=== PATIENT | female | born 1975 | race Two or more races ===

== ENCOUNTER 2019-09-29 04:40 | Emergency (ER) | payer SELFPAY ==
[2019-09-29 07:25] LABS: APPEARANCE,URINE CLEAR; BILIRUBIN,URINE NEGATIVE (NEGATIVE); GLUCOSE, URINE 50 mg/dL (NEGATIVE); KETONES,URINE NEGATIVE (NEGATIVE); LEUKOCYTE ESTERASE,URINE NEGATIVE (NEGATIVE); NITRITE,URINE POSITIVE (NEGATIVE); PROTEIN,URINE NEGATIVE (NEGATIVE); URINE SPECIFIC GRAVITY 1.011
[2019-09-29 07:28] LABS: COLOR,URINE ORANGE
--- NOTE | 2019-09-29 09:16 | ER Document Report ---
ED General - General Chief Complaint: Pain With Urination Stated Complaint: URINARY ISSUE Time Seen by Provider: 09/29/19 07:51 TRAVEL OUTSIDE OF THE [place] IN LAST 30 DAYS: No - HPI Notes: Patient is a 43-year-old female with a history of chronic back pain, hypertension, diabetes, who presents to the emergency department for evaluation of difficulty urinating. She states she is had similar symptoms in the past, but she was unable to pass any urine at all. She came here to the ER for further evaluation. Bladder scan prior to my evaluation of the patient revealed over 300 cc of urine, so straight cath was placed. The patient had over 700 cc of urine drained from the bladder. She denies any incontinence. She denies any saddle anesthesia. No focal numbness or weakness. She denies any recent changes in medications, with the exception of some hucc-nkj-jrvkbyc bladder anesthetic that she took last night. This did turn her urine bright orange. - Related Data Allergies/Adverse Reactions: No Known Allergies Allergy (Verified 09/29/19 06:51) Home Medications: Lisinopril. metformin. Glipizide Past Medical History - General Information source: Patient - Social History Smoking Status: Never Smoker Chew tobacco use (# tins/day): No Frequency of alcohol use: None Drug Abuse: None Family History: Reviewed & Not Pertinent Patient has suicidal ideation: No Patient has homicidal ideation: No - Past Medical History Cardiac Medical History: Reports: Hx Hypertension Endocrine Medical History: Reports: Hx Diabetes Mellitus Type 2 Past Surgical History: Reports: Hx Hysterectomy Review of Systems - Review of Systems Genitourinary: See HPI Musculoskeletal: See HPI -: Yes All other systems reviewed and negative Physical Exam - Vital signs Vitals: Temp Pulse Resp BP Pulse Ox 97.7 F 78 18 147/88 H 98 09/29/19 04:44 09/29/19 04:44 09/29/19 04:44 09/29/19 04:44 09/29/19 04:44 - Notes Notes: Vital signs reviewed, please refer to chart. Head is normocephalic, atraumatic. Pupils equal round, reactive to light. Neck is supple without meningismus. Heart is regular rate and rhythm. Lungs are clear to auscultation bilaterally. Abdomen is soft, mildly tender in the suprapubic region without rebound or guarding, normoactive bowel sounds throughout. Extremities without cyanosis, clubbing. Posterior calves are nontender. Peripheral pulses are equal. Skin is warm and dry. Examination of the spine yields no midline tenderness or step- off. She has paraspinal musculature tenderness noted throughout the lumbar spine. Negative straight leg raise bilaterally. Strength is 4+ out of 5 bilateral lower extremities. Patellar and Achilles reflexes are symmetrical, sensation is intact. Course - Re-evaluation Re-evalutation: 09/29/19 09:16 Patient is a 43-year-old female who presents to the emergency department for evaluation of urinary retention. I do not have a clear etiology for this at this time, and I am concerned about the possibility of cauda equina being the etiology. I did order blood work and MRI of the lumbar spine. Patient's urinalysis was nitrite positive, but this was after having taken an fwsp-vrj-jvgetss bladder anesthetic which change the color of her urine. I am concerned that that is the etiology of this finding. Patient had urine sent for culture. At this time she is stable, we will continue to monitor. 09/29/19 11:42 Patient's MRI is completely unremarkable. No signs of cauda equina. I am concerned that it is possible her diabetes is the etiology of her urinary retention. This was discussed with the patient as well as her fianc in great detail. Decision was made to place a Fermin catheter and refer her on to urology. I also explained that, despite the nitrate positive urine, I was not treating for infection at this time secondary to discoloration from her [id number]-djxsmuf medication. She voiced understanding to this as well. We will contact her if her urine culture grows any bacteria. Otherwise urology referral placed, she is to return to the ED with worsening. - Vital Signs Vital signs: Temp Pulse Resp BP Pulse Ox 97.7 F 78 18 147/88 H 98 09/29/19 04:44 09/29/19 04:44 09/29/19 04:44 09/29/19 04:44 09/29/19 04:44 - Laboratory Result Diagrams: 09/29/19 09:30 09/29/19 09:30 Laboratory results interpreted by me: 09/29/19 09/29/19 06:35 09:30 Glucose 134 H Urine Glucose (UA) 50 H Urine Nitrite POSITIVE H Urine Urobilinogen 4.0 H - Diagnostic Test Radiology reviewed: Reports reviewed Radiology results interpreted by me: 09/29/19 11:43 Lumbar Spine MRI 09/29/19 09:11 IMPRESSION: 1. No spinal or foraminal stenosis. The conus medullaris terminates at the level of L1-L2 and it is normal in caliber and signal intensity. 2. Distended urinary bladder. Discharge - Discharge Clinical Impression: Urinary retention with incomplete bladder emptying Condition: Stable Disposition: HOME, SELF-CARE Instructions: Urinary Retention ([facility]), Fermin Catheter Care ([facility]) Additional Instructions: Follow-up with urology as soon as possible. Call this afternoon for an appointment. If you develop fevers, vomiting, problems with the catheter, or any other new or concerning symptoms, please return immediately to the emergency department for evaluation. [email or web address] [address] [place] [address] [email or web address] [address]
[2019-09-29 09:49] LABS: ABSOLUTE EOSINOPHILS # (AUTO) 0.1 10^3/uL (0.0-0.6); ABSOLUTE LYMPHOCYTES (AUTO) 2.4 10^3/uL (0.5-4.7); ABSOLUTE MONOCYTES (AUTO) 0.7 10^3/uL (0.1-1.4); ABSOLUTE NEUT (AUTO) 5.2 10^3/uL (1.7-8.2); BASOPHILS % (AUTO) 0.4 % (0-2); EOSINOPHILS % (AUTO) 1.4 % (0-6); HEMATOCRIT 42.2 % (36.0-47.0); HEMOGLOBIN 14.8 g/dL (12.0-15.5); LYMPHOCYTES % (AUTO) 28.4 % (13-45); MEAN CORPUSCULAR HEMOGLOBIN 31.3 pg (27.0-33.4); MEAN CORPUSCULAR HGB CONC 34.9 g/dL (32.0-36.0); MEAN CORPUSCULAR VOLUME 90 fl (80-97); MONOCYTES % (AUTO) 8.4 % (3-13); PLATELET COUNT 273 10^3/uL (150-450); RED BLOOD COUNT 4.72 10^6/uL (3.72-5.28); RED CELL DISTRIBUTION WIDTH 13.2 % (11.5-14.0); SEGMENTED NEUTROPHILS % (AUTO) 61.4 % (42-78); TOTAL CELLS COUNTED % (AUTO) 100 %; WHITE BLOOD COUNT 8.4 10^3/uL (4.0-10.5)
[2019-09-29 10:20] LABS: ALBUMIN 4.7 g/dL (3.5-5.0); ALKALINE PHOSPHATASE 80 U/L (38-126); ANION GAP 9 (5-19); ASPARTATE AMINO TRANSFERASE 21 U/L (14-36); BILIRUBIN,TOTAL 0.7 mg/dL (0.2-1.3); BLOOD UREA NITROGEN 13 mg/dL (7-20); CALCIUM 9.8 mg/dL (8.4-10.2); CARBON DIOXIDE 29 mmol/L (22-30); CHLORIDE 102 mmol/L (98-107); GLUCOSE 134 mg/dL (75-110); POTASSIUM 4.4 mmol/L (3.6-5.0); TOTAL PROTEIN 8.2 g/dL (6.3-8.2)
--- NOTE | 2019-09-29 10:26 | RADIOLOGY REPORT (SQ) ---
EXAM DESCRIPTION: MRI LUMBAR SPINE WITHOUT COMPLETED DATE/TIME: 09/29/2019 10:09 am REASON FOR STUDY: back pain, urinary retention, eval ? cauda equina COMPARISON: None. TECHNIQUE: Sagittal and Axial imaging includes T1, T2, STIR and gradient echo sequences. Coronal T2/ HASTE imaging. LIMITATIONS: None. FINDINGS: VISUALIZED UPPER ABDOMEN: Retroaortic left renal vein. SEGMENTATION: There are 5 lumbar-type vertebral bodies. There is no transitional anatomy at the lumb osacral junction. ALIGNMENT: Anatomic. VERTEBRAE: Intact. BONE MARROW: Normal. DISC SIGNAL: Normal. POSTERIOR ELEMENTS: Intact. HARDWARE: None in the spine. CORD AND CONUS: The conus medullaris terminates at the level of L1-L2 and it is normal in caliber and signal intensity. SOFT TISSUES: The urinary bladder is distended. L1-L2: No spinal or foraminal stenosis. L2-L3: No spinal or foraminal stenosis. L3-L4: No spinal or foraminal stenosis. L4-L5: No spinal or foraminal stenosis. L5-S1: Mild degeneration of the set joints. There is no spinal or foraminal stenosis. LOWER THORACIC: No stenosis. SACRUM: Intact. OTHER: No other findings. IMPRESSION: 1. No spinal or foraminal stenosis. The conus medullaris terminates at the level of L1 -L2 and it is normal in caliber and signal intensity. 2. Distended urinary bladder. TECHNICAL DOCUMENTATION: JOB ID: [id number] 2010 [employer]- All Rights Reserved Reading location - IP/workstation name: [email or web address]
[2019-09-29 13:14] VITALS: BP 133/85
== END 2019-09-29 13:13 | disposition home or self-care (01) ==
LOC: ER 04:40
DX: R33.9 Retention of urine, unspecified (principal); I10 Essential (primary) hypertension; E11.9 Type 2 diabetes mellitus without complications; Z79.899 Other long term (current) drug therapy; Z79.84 Long term (current) use of oral hypoglycemic drugs; R10.819 Abdominal tenderness, unspecified site
CPT/HCPCS: 36415; 51702; 72148; 80053; 81001; 85025; 87086; 99284

== ENCOUNTER 2019-10-01 18:18 | Emergency (ER) | payer SELFPAY ==
[2019-10-01 20:25] VITALS: BP 133/92
--- NOTE | 2019-10-01 21:06 | ER Document Report ---
ED Medical Screen (RME) - General Chief Complaint: Abdominal Pain Stated Complaint: BLOOD IN URINE/HARLEY CATHETER Time Seen by Provider: 10/01/19 20:52 Mode of Arrival: Ambulatory Information source: Patient Notes: 43-year-old female presented to ED for suprapubic pain pressure pain at the site of the Harley and very dark urine. She was seen in here on Sunday due to urinary retention due to her diabetes. Harley catheter was placed. They were instructed to follow-up with urology which they have called multiple places. The soonest they can get was in 4 months and another urologist stated they would call him back to see if they could get into be seen in a month but they have not been called back yet. She is in here today because they were under the impression they could come in here and get the Harley out if she was uncomfortable. I have explained that they need to have the reason for the discomfort evaluated and then treat the cause of the problem. I have greeted and performed a rapid initial assessment of this patient. A comprehensive ED assessment and evaluation of the patient, analysis of test results and completion of medical decision making process will be conducted by an additional ED providers. TRAVEL OUTSIDE OF THE [place] IN LAST 30 DAYS: No - Related Data Allergies/Adverse Reactions: No Known Allergies Allergy (Verified 09/29/19 06:51) Past Medical History - Past Medical History Cardiac Medical History: Reports: Hx Hypertension Endocrine Medical History: Reports: Hx Diabetes Mellitus Type 2 Past Surgical History: Reports: Hx Hysterectomy Physical Exam - Vital signs Vitals: Temp Pulse Resp BP Pulse Ox 98.4 F 81 16 133/92 H 100 10/01/19 19:54 10/01/19 19:54 10/01/19 19:54 10/01/19 19:54 10/01/19 19:54 Course - Vital Signs Vital signs: Temp Pulse Resp BP Pulse Ox 98.4 F 81 16 133/92 H 100 10/01/19 19:54 10/01/19 19:54 10/01/19 19:54 10/01/19 19:54 10/01/19 19:54
== END 2019-10-02 01:37 | disposition left against medical advice (07) ==
LOC: ER 18:18
DX: Z53.21 Procedure and treatment not carried out due to patient leaving prior to being seen by health care provider (principal); R10.9 Unspecified abdominal pain; R31.9 Hematuria, unspecified; R33.9 Retention of urine, unspecified; I10 Essential (primary) hypertension; E11.9 Type 2 diabetes mellitus without complications
CPT/HCPCS: 99281